=== PATIENT | male | born 1970 | race Caucasian/White ===

== ENCOUNTER 2017-04-10 21:10 | Emergency (ER) | payer BC ==
--- NOTE | ~2017-04-10 | ER ---
PATIENT'S NAME: KEMAR MEEK [facility] AGE: 46 Y [address] ROOM: [place] [address] LOCATION: [facility] ADMIT DATE: 04/10/2017 ER/Outpatient Report DISCHARGE DATE: 04/10/2017 FAMILY PHYSICIAN: Bart Bhakta PA-C ATTENDING PHYSICIAN: Luis Eduardo Rider CHIEF COMPLAINT: Seen in the emergency room for left hand injury. HISTORY OF PRESENT ILLNESS: Five days ago, the patient was working on a car and the wrench slipped, and he hit the back of his left hand on a metal. He had pain and a dint in the skin initially. Pain subsided somewhat, but has not gone away, which is concerning to him and he reports he has had a little bit more swelling in that area in the last 24 hours. He also has since last night had some discomfort and tingling in the medial portion of his hand near the wrist. He has not had any new injuries. He has not had any fevers. PAST MEDICAL HISTORY: Asthma and hypertension. PAST SURGICAL HISTORY: A fusion of C5-C6 and C4-C7 and cholecystectomy. REVIEW OF SYSTEMS: CONSTITUTIONAL: The patient denies any recent illnesses. He has no history of gout. HEENT: No headache or vision changes. CARDIOVASCULAR: No chest pain. RESPIRATORY: No shortness of breath or cough. GI: No nausea or vomiting. : No urgency, frequency, or dysuria. NEURO: No complaints. MUSCULOSKELETAL: Pain in the left hand and wrist. HEMATOLOGY: No history of bleeding disorders. SKIN: No complaints. PHYSICAL EXAMINATION: VITAL SIGNS: Temperature is 97.7, pulse of 80, respiratory rate of 18, blood pressure 142/83, oxygen saturation 98% on room air. GENERAL APPEARANCE: The patient is alert and oriented. [place], warm, and dry. No acute distress. HEENT: Head is normocephalic. Eyes, PERRL. Ears, nose, and throat not examined. NECK: Supple. No lymphadenopathy. PATIENT'S NAME: KEMAR MEEK [facility] AGE: 46 Y [address] ROOM: [place] [address] LOCATION: [facility] ADMIT DATE: 04/10/2017 ER/Outpatient Report DISCHARGE DATE: 04/10/2017 FAMILY PHYSICIAN: Bart Bhakta PA-C ATTENDING PHYSICIAN: Luis Eduardo Rider LUNGS: Clear to anterior-posterior auscultation. Respiratory effort is normal. HEART: Rate is regular. Normal S1, S2. No murmur. ABDOMEN: Soft, nontender. Bowel sounds are present in all 4 quadrants. EXTREMITIES: The dorsum of the left hand on the medial surface is ecchymotic and slightly edematous. There is tenderness over this area with deep palpation. No crepitus. No deformity and the skin is intact at the ulnar tuberosity. There is slight tenderness with deep palpation. He states this feels more like a tingling than it does a pain. The hand is neurovascularly intact. Strong belt maker. No paresthesias in the fingers. Tinel sign is negative. DIAGNOSTIC DATA: X-ray negative for fracture or dislocation. IMPRESSION AND ASSESSMENT: Contusion, left hand. EMERGENCY DEPARTMENT COURSE: The patient is reassured by negative x-ray. DISPOSITION AND PLAN: The patient will use ice, take Tylenol and/or ibuprofen for the discomfort. He is to follow up in 7-10 days if he is not better and sooner if he is worse. LISA MOSHER APRN FOR LUIS EDUARDO RIDER MD DP/joshua /[id number] d: 04/11/17 0232 t: 04/20/17 1419, OUTPATIENT REPORT
== END 2017-04-10 21:46 | disposition disaster alternative care site (69) ==
LOC: GACC 21:10
DX: S60.222A Contusion of left hand, initial encounter (principal); I10 Essential (primary) hypertension; J45.909 Unspecified asthma, uncomplicated; Z79.899 Other long term (current) drug therapy; Z88.0 Allergy status to penicillin; Z90.49 Acquired absence of other specified parts of digestive tract; W01.198A Fall on same level from slipping, tripping and stumbling with subsequent striking against other object, initial encounter; Y93.89 Activity, other specified

== ENCOUNTER 2017-05-18 20:10 | Emergency (ER) | payer BC ==
--- NOTE | ~2017-05-18 | ER ---
PATIENT'S NAME: [facility] AGE: 47 Y [address] ROOM: [place] [address] LOCATION: [facility] ADMIT DATE: 05/18/2017 ER/Outpatient Report DISCHARGE DATE: 05/18/2017 FAMILY PHYSICIAN: Physician, Unknown ATTENDING PHYSICIAN: Melisa Perez Time of Arrival: 2009 hours. Time Seen: 2009 hours. IDENTIFICATION: A 47-year-old male. CHIEF COMPLAINT: Chest pain. HISTORY OF PRESENT ILLNESS: The patient is a 47-year-old male who has had chest pain intermittently since 9 o'clock this morning. Nothing seems to make it worse or better. It is substernal, no radiation, intermittent numbness in his left arm, and intermittently short of breath. No nausea or vomiting, no diaphoresis. He has had pain like this off and on for the last couple of days. PAST MEDICAL HISTORY: ALLERGIES: TO PENICILLIN, ZANTAC, AND SHELLFISH. CURRENT MEDICATIONS: 1. Lisinopril. 2. Amlodipine. 3. Excedrin. 4. Montelukast. 5. Wjbv-jso-exaycnf testosterone. MEDICAL PROBLEMS: Pleurisy, asthma, hypertension. PRIOR SURGERIES: Cholecystectomy and fusion of C5-C6. SOCIAL HISTORY: The patient is . 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 Tobacco use, denies. Alcohol use, denies. Drug use, denies. FAMILY HISTORY: [facility] 47 Y [address] ROOM: [place] [address] LOCATION: [facility] ADMIT DATE: 05/18/2017 ER/Outpatient Report DISCHARGE DATE: 05/18/2017 FAMILY PHYSICIAN: Physician, Unknown ATTENDING PHYSICIAN: Melias Perez No family history of premature coronary artery disease. REVIEW OF SYSTEMS: All systems reviewed and negative other than what is noted in the HPI. PHYSICAL EXAMINATION: VITAL SIGNS: Height 5 feet 8 inches, weight 122.3 kilograms, blood pressure 152/86, pulse 77, respirations 16, temperature 99.2, and saturations 94%. GENERAL: A 47-year-old male, in no acute distress. HEENT: Unremarkable. LUNGS: Clear to auscultation. HEART: Regular rate and rhythm. ABDOMEN: Soft, nondistended, nontender. SKIN: Rafael Gonzalez, warm, and dry. No lesions or rashes noted. NEURO: No focal deficit. No lower extremity edema. No calf tenderness. CHEST WALL: He does have chest wall tenderness that is reproduced to palpation, and he has minimal pain at this time. When the pain does come, it is only there for a few seconds to minutes. LABORATORY DATA AND X-RAYS: Chest x-ray, 1 view, no acute process, pending Radiology overread. Chemistry panel is unremarkable. Cardiac enzymes are negative. CBC is normal. Two- hour cardiac enzymes are negative. EKG; sinus rhythm, 78 beats per minute. No acute ST elevation or depression. No prior EKG available for comparison. Two-hour EKG, no acute changes. EMERGENCY DEPARTMENT COURSE: The patient's pain remained minimal; when he left, it was zero. He did not want anything for pain while he was here. He was given 4 baby aspirin on arrival. IMPRESSION: Chest pain, noncardiac. PLAN: Ibuprofen 600 mg t.i.d. with food. Rest, no heavy lifting. Follow up with [facility] in 1 to 2 days. Follow up sooner if any problems or concerns. The patient and his understand and agree, and all questions have been answered. MELISA PEREZ MD PATIENT'S NAME: KEMAR MEEK [facility] AGE: 47 Y [address] ROOM: [place] [address] LOCATION: ED ADMIT DATE: 05/18/2017 ER/Outpatient Report DISCHARGE DATE: 05/18/2017 FAMILY PHYSICIAN: Physician, Unknown ATTENDING PHYSICIAN: Melisa Perez CAR/modl /[id number] d: 05/19/17 0141 t: 05/23/17 0628, OUTPATIENT REPORT
[2017-05-18 20:25] LABS: BASOPHIL # 0.1 K/uL (0.0-0.2); BASOPHIL % 0.6 %; EOSINOPHIL # 0.2 K/uL (0.0-0.5); EOSINOPHIL % 2.1 %; HEMATOCRIT 44.8 % (37.0-53.0); HEMOGLOBIN 16.1 g/dL (12.0-17.0); IMMATURE GRANULOCYTE % 0.2 %; LYMPHOCYTE # 3.1 K/uL (0.8-4.0); LYMPHOCYTE % 30.4 %; MCH 32.9 pg (27.0-34.0); MCHC 35.9 gm/dL (32.0-36.5); MCV 91.4 fl (83.0-98.0); MONOCYTE # 0.8 K/uL (0.0-1.0); MONOCYTE % 7.4 %; MPV 10.2 fl (9.4-12.4); NEUTROPHIL # (ANC) 6.1 K/uL (1.4-9.0); NEUTROPHIL % 59.3 %; NRBC % 0 /100WBC (0-0.00); PLATELET COUNT 211 K/uL (150-450); RDW-CV 11.5 % (11.9-14.6); WBC 10.3 K/uL (4.0-11.0)
[2017-05-18 20:34] LABS: INR - (THERAPEUTIC) 0.92 (0.92-1.07); PROTIME 9.7 SECONDS (9.8-11.4)
[2017-05-18 20:35] LABS: PTT 26 SECONDS (25-32)
[2017-05-18 20:43] LABS: ALBUMIN 3.8 gm/dL (3.5-5.0); ALK PHOS 109 IU/L (33-138); ALT 27 IU/L (12-78); ANION GAP 10.7 (10.0-19.0); AST 15 IU/L (10-40); BLOOD UREA NITROGEN 9 mg/dL (6-24); CALCIUM 8.6 mg/dL (8.5-10.5); CHLORIDE 107 mMol/L (96-110); CO2 27 mMol/L (22-32); CPK 76 IU/L (35-332); CREATININE 1.2 mg/dL (0.6-1.3); MAGNESIUM 2.4 mg/dL (1.8-2.6); POTASSIUM 3.7 mMol/L (3.7-5.1); SODIUM 141 mMol/L (135-145); TOTAL BILIRUBIN 0.3 mg/dL (0.0-1.5); TOTAL PROTEIN 7.1 g/dL (6.0-8.4)
[2017-05-18 22:45] LABS: CPK 69 IU/L (35-332)
== END 2017-05-18 23:08 | disposition disaster alternative care site (69) ==
LOC: GMED 20:10
PROVIDERS: Family Medicine
DX: R07.89 Other chest pain (principal); I10 Essential (primary) hypertension; J45.909 Unspecified asthma, uncomplicated; Z88.0 Allergy status to penicillin; Z88.8 Allergy status to other drugs, medicaments and biological substances; Z91.013 Allergy to seafood; Z98.1 Arthrodesis status; Z90.49 Acquired absence of other specified parts of digestive tract; Z79.899 Other long term (current) drug therapy